=== PATIENT | male | born 1955 | race Caucasian/White ===

== ENCOUNTER 2020-01-03 11:46 | Emergency (ER) | payer MEDICARE ==
[2020-01-03] MEDS ORDERED: Sodium Chloride 0.9% 10 ML Syringe FLUSH PRN (12:18)
--- NOTE | 2020-01-03 12:21 | EDM.PDOC ---
ED HPI GENERAL MEDICAL PROBLEM - General Chief Complaint: Chest Pain Stated Complaint: HIGH BLOOD PRESSURE Time Seen by Provider: 01/03/20 11:55 Source of Information: Reports: Patient History Limitations: Reports: No Limitations - History of Present Illness INITIAL COMMENTS - FREE TEXT/NARRATIVE: Patient is a 64-year-old male who presents to the emergency department with complaints of a two-week history of intermittent shortness of breath, slight "burning "in his left lateral chest, and occasional dizziness upon standing. He states today he checked his blood pressure at home and was found to be 165/93 and then 140/90 which was concerning for him so he came to the emergency department. He has a long history of hypertension but has never had an MN or any other cardiac events. Denies any history of blood clots. He was tested for COVID 6 days ago and this was found to be negative. He denies any fever, chills, cough, nausea, or vomiting. He is not feeling short of breath at this time. States he does have "a little bit "of the left lateral chest burning. - Related Data Allergies Allergy/AdvReac Type Severity Reaction Status Date / Time Penicillins Allergy Hives Verified 01/03/20 12:02 Home Meds: Home Meds Allopurinol [Zyloprim] 400 mg PO DAILY 01/03/20 [History] Propranolol HCl [Propranolol HCl ER] 160 mg PO DAILY 01/03/20 [History] Simvastatin [Zocor] 1 tab PO DAILY 01/03/20 [History] hydroCHLOROthiazide [Hydrochlorothiazide] 1 tab PO DAILY 01/03/20 [History] lisinopriL [Lisinopril] 40 mg PO DAILY 01/03/20 [History] Past Medical History Cardiovascular History: Reports: Hypertension - Past Surgical History Musculoskeletal Surgical History: Reports: Hip Replacement Social & Family History - Tobacco Use Smoking Status *Q: Former Smoker Used Tobacco, but Quit: Yes Month/Year Tobacco Last Used: 2009 - Caffeine Use Caffeine Use: Reports: Coffee - Recreational Drug Use Recreational Drug Use: No ED ROS GENERAL - Review of Systems Review Of Systems: See Below Constitutional: Reports: No Symptoms. Denies: Fever, Chills, Weakness HEENT: Reports: No Symptoms Respiratory: Reports: Shortness of Breath. Denies: Wheezing Cardiovascular: Reports: Chest Pain, Lightheadedness (Occasionally upon standing). Denies: Palpitations Endocrine: Reports: No Symptoms GI/Abdominal: Reports: No Symptoms. Denies: Abdominal Pain, Diarrhea, Vomiting : Reports: No Symptoms Musculoskeletal: Reports: No Symptoms Skin: Reports: No Symptoms Neurological: Reports: No Symptoms Psychiatric: Reports: No Symptoms Hematologic/Lymphatic: Reports: No Symptoms Immunologic: Reports: No Symptoms ED EXAM, GENERAL - Physical Exam Exam: See Below Exam Limited By: No Limitations General Appearance: Alert, WD/WN, No Apparent Distress Respiratory/Chest: No Respiratory Distress, Lungs Clear, Normal Breath Sounds, No Accessory Muscle Use, Chest Non-Tender Cardiovascular: Normal Peripheral Pulses, Regular Rate, Rhythm, No Edema, No Gallop, No JVD, No Murmur, No Rub GI/Abdominal: Normal Bowel Sounds, Soft, Non-Tender, No Organomegaly, No Dis tention, No Abnormal Bruit, No Mass Neurological: Alert, Oriented, CN II-XII Intact, Normal Cognition, Normal Gait, Normal Reflexes, No Motor/Sensory Deficits Psychiatric: Normal Affect, Normal Mood Skin Exam: Warm, Dry, Intact, Normal Color, No Rash EKG INTERPRETATION EKG Date: 01/03/20 Time: 12:06 Rhythm: NSR Rate (Beats/Min): 56 [place]: Normal P-Wave: Present QRS: Other (LAFB) ST-T: Normal QT: Normal Comparison: NA - No Prior EKG Course - Vital Signs Last Recorded V/S: Last Vital Signs Temp 97.3 F 01/03/20 11:55 Pulse 57 L 01/03/20 11:55 Resp 18 01/03/20 11:55 BP 135/97 H 01/03/20 11:55 Pulse Ox 100 01/03/20 11:55 Orthostatic Blood Pressure [ 120/87 Standing] Orthostatic Blood Pressure [ 122/86 Sitting] Orthostatic Blood Pressure [ 115/76 Supine] - Orders/Labs/Meds Orders: Active Orders 24 hr Category Date Time Status EKG Documentation Completion [RC] STAT Care 01/03/20 12:24 Active Orthostatic Vital Signs [RC] ASDIRECTED Care 01/03/20 12:16 Active Peripheral IV Care [RC] . DIRECTED Care 01/03/20 12:18 Active Chest 2V [CR] Stat Exams 01/03/20 12:15 Taken Sodium Chloride 0.9% [Saline Flush] Med 01/03/20 12:18 Active 10 ml FLUSH ASDIRECTED PRN Peripheral IV Insertion Adult [OM.PC] Stat Oth 01/03/20 12:18 Ordered Medication Orders Sodium Chloride (Saline Flush) 10 ml FLUSH ASDIRECTED PRN PRN Reason: Keep Vein Open Last Admin: 01/03/20 12:33 Dose: 10 ml Documented by: ALE Labs: Laboratory Tests 01/03/20 01/03/20 01/03/20 Range/Units 12:30 12:30 12:30 WBC 6.89 (4.23-9.07) K/mm3 RBC 4.87 (4.63-6.08) M/mm3 Hgb 14.5 (13.7-17.5) gm/dl Hct 43.9 (40.1-51.0) % MCV 90.1 (79.0-92.2) fl MCH 29.8 (25.7-32.2) pg MCHC 33.0 (32.2-35.5) g/dl RDW Std Deviation 45.5 H (35.1-43.9) fL Plt Count 299 (163-337) K/mm3 MPV 9.9 (9.4-12.3) fl Neut % (Auto) 68.1 H (34.0-67.9) % Lymph % (Auto) 21.0 L (21.8-53.1) % [place] % (Auto) 8.3 (5.3-12.2) % Eos % (Auto) 1.9 (0.8-7.0) Baso % (Auto) 0.6 (0.1-1.2) % Neut # (Auto) 4.69 (1.78-5.38) K/mm3 Lymph # (Auto) 1.45 (1.32-3.57) K/mm3 [place] # (Auto) 0.57 (0.30-0.82) K/mm3 Eos # (Auto) 0.13 (0.04-0.54) K/mm3 Baso # (Auto) 0.04 (0.01-0.08) K/mm3 D-Dimer, Quantitative 0.27 (0.19-0.50) mg/L Sodium 137 (136-145) mEq/L Potassium 4.0 (3.5-5.1) mEq/L Chloride 101 (98-107) mEq/L Carbon Dioxide 28 (21-32) mEq/L Anion Gap 12.0 (5-15) BUN 26 H (7-18) mg/dL Creatinine 1.5 H (0.7-1.3) mg/dL Est Cr Clr Drug Dosing 53.89 mL/min Estimated GFR (MDRD) 47 (>60) mL/min BUN/Creatinine Ratio 17.3 (14-18) Glucose 104 (80-115) mg/dL Calcium 9.6 (8.5-10.1) mg/dL Total Bilirubin 0.5 (0.2-1.0) mg/dL AST 40 H (15-37) U/L ALT 46 (16-63) U/L Alkaline Phosphatase 41 L (46-116) U/L Troponin I < 0.017 (0.00-0.056) ng/mL C-Reactive Protein 0.3 (<1.0) mg/dL Total Protein 7.5 (6.4-8.2) g/dl Albumin 4.0 (3.4-5.0) g/dl Globulin 3.5 gm/dL Albumin/Globulin Ratio 1.1 (1-2) Meds: Medications Generic Name Dose Route Start Last Admin Trade Name Freq PRN Reason Stop Dose Admin Sodium Chloride 10 ml 01/03/20 12:18 01/03/20 12:33 Saline Flush FLUSH 10 ml ASDIRECTED PRN Administration Keep Vein Open - Re-Assessments/Exams Free Text/Narrative Re-Assessment/Exam: 01/03/20 13:35 Patient's work-up was found to be normal. D-dimer was negative. Troponin was negative. Orthostatic vital signs were normal. EKG showed no acute abnormalities. Chest x-ray was normal. Discussed these results with the patient. Recommend that he contact his primary care provider tomorrow to discuss the occurrences and the possibility of an outpatient stress test. He is in agreement with this plan. Discharge instructions as documented. Departure - Departure Time of Disposition: 13:35 Disposition: Home, Self-Care 01 Condition: Good Clinical Impression: Atypical chest pain Dyspnea Qualifiers: Dyspnea type: unspecified Qualified Code(s): R06.00 - Dyspnea, unspecified Instructions: Shortness of Breath, Adult, [id number], Nonspecific Chest Pain, Adult Referrals: Flora Kirkland MD [Primary Care Provider] - Forms: ED Department Discharge Additional Instructions: You were seen in the emergency department today for a 2-week history of intermittent chest pressure and shortness of breath. Your work-up included blood work, an EKG of your heart, and a chest x-ray. Your work-up was found to be overall normal. You are not having a heart attack and you do not have a blood clot in your lungs. Recommend that you continue your current medications as previously prescribed. Contact your primary care provider tomorrow to discuss your symptoms and the possibility of an outpatient stress test. Return to the ER for any new or worsening symptoms of concern. Sepsis Event Note (ED) - Evaluation Sepsis Screening Result: No Definite Risk - Focused Exam Vital Signs: Vital Signs Temp Pulse Resp BP Pulse Ox 01/03/20 11:55 97.3 F 57 L 18 135/97 H 100 - My Orders Last 24 Hours: My Active Orders 01/03/20 12:15 Chest 2V [CR] Stat 01/03/20 12:16 Orthostatic Vital Signs [RC] ASDIRECTED 01/03/20 12:18 Peripheral IV Care [RC] . DIRECTED Sodium Chloride 0.9% [Saline Flush] 10 ml FLUSH ASDIRECTED PRN Peripheral IV Insertion Adult [OM.PC] Stat 01/03/20 12:24 EKG Documentation Completion [RC] STAT - Assessment/Plan Last 24 Hours: My Active Orders 01/03/20 12:15 Chest 2V [CR] Stat 01/03/20 12:16 Orthostatic Vital Signs [RC] ASDIRECTED 01/03/20 12:18 Peripheral IV Care [RC] . DIRECTED Sodium Chloride 0.9% [Saline Flush] 10 ml FLUSH ASDIRECTED PRN Peripheral IV Insertion Adult [OM.PC] Stat 01/03/20 12:24 EKG Documentation Completion [RC] STAT
--- NOTE | 2020-01-04 11:45 | CR ---
Chest: 2 views of the chest were obtained. Comparison: No previous chest imaging. Heart size is normal. Tortuous thoracic aorta is noted. Lungs are clear but no acute parenchymal change. Mild scoliosis is noted within the spine. Minimal scattered degenerative change is noted within the spine. Impression: 1. Nothing acute is appreciated on 2 view chest x-ray. Diagnostic code #2 This report was dictated in MDT
== END 2020-01-03 13:45 | disposition home or self-care (01) ==
LOC: JD.ED 11:46
DX: R06.00 Dyspnea, unspecified (principal); R07.89 Other chest pain; I10 Essential (primary) hypertension; Z88.0 Allergy status to penicillin; Z79.899 Other long term (current) drug therapy; Z87.891 Personal history of nicotine dependence
CPT/HCPCS: 36415; 71046; 71046-26; 80053; 84484; 85025; 85379; 86140; 93005; 99285-25